=== PATIENT | male | born 1950 | race Two or more races ===

== ENCOUNTER 2017-11-17 14:13 | Outpatient (CLI) | payer OTHER | END 2017-11-17 14:21 | disposition home or self-care (01) | LOC: MRI 14:13 | DX: R41.3 Other amnesia (principal) | CPT/HCPCS: 70551 ==

== ENCOUNTER 2017-12-15 09:41 | Outpatient (CLI) | payer OTHER | END 2017-12-15 14:21 | disposition home or self-care (01) | LOC: MRI 09:41 | DX: M25.512 Pain in left shoulder (principal); M25.511 Pain in right shoulder | CPT/HCPCS: 73221 ==

== ENCOUNTER 2017-12-15 12:23 | Outpatient (CLI) | payer OTHER | END 2017-12-15 14:22 | disposition home or self-care (01) | LOC: RAD 12:23 | DX: M25.511 Pain in right shoulder (principal); M25.512 Pain in left shoulder; M19.012 Primary osteoarthritis, left shoulder ==

== ENCOUNTER 2018-04-25 10:09 | Outpatient (CLI) | payer OTHER | END 2018-04-25 17:00 | disposition home or self-care (01) | LOC: RAD 10:09 | DX: M54.6 Pain in thoracic spine (principal); M54.5 Low back pain ==

== ENCOUNTER 2018-05-13 13:24 | Outpatient (CLI) | payer OTHER | END 2018-05-13 17:00 | disposition home or self-care (01) | LOC: MRI 13:24 | DX: M54.17 Radiculopathy, lumbosacral region (principal) | CPT/HCPCS: 72158; A9579; 72149 ==

== ENCOUNTER → 2018-05-13 13:25 | Outpatient (CLI) | payer OTHER | END | disposition home or self-care (01) | LOC: LAB 13:25 | DX: M54.17 Radiculopathy, lumbosacral region (principal) ==

== ENCOUNTER 2018-07-05 11:49 | Outpatient (CLI) | payer OTHER | END 2018-07-05 11:53 | disposition home or self-care (01) | LOC: RAD 11:49 | DX: M47.817 Spondylosis without myelopathy or radiculopathy, lumbosacral region (principal); S32.010D Wedge compression fracture of first lumbar vertebra, subsequent encounter for fracture with routine healing ==

== ENCOUNTER 2018-07-14 09:08 | Emergency (ER) | payer OTHER ==
[~2018-07-14] VITALS: Ht 182.9 cm; Wt 95.3 kg
[2018-07-14] MEDS ORDERED: RANEXA1000 MG PO (09:21)
[2018-07-14] MEDS ORDERED: LIPITOR20 MG PO (09:22)
[2018-07-14] MEDS ORDERED: PLAVIX75 MG PO (09:22)
[2018-07-14] MEDS ORDERED: TOPROL XL25 M1 PO (09:22)
== END 2018-07-14 16:59 | disposition home or self-care (01) ==
LOC: ER 09:08
DX: N23 Unspecified renal colic (principal); R10.32 Left lower quadrant pain

== ENCOUNTER 2019-08-29 14:41 | Outpatient (CLI) | payer OTHER ==
[~2019-08-29 14:41] MED LIST: LIPITOR20 MG PO; PLAVIX75 MG PO; RANEXA1000 MG PO; TOPROL XL25 M1 PO
== END 2019-08-29 14:43 | disposition home or self-care (01) ==
LOC: RAD 14:41
DX: Z96.651 Presence of right artificial knee joint (principal)

== ENCOUNTER → 2019-10-26 12:59 | Outpatient (CLI) | payer OTHER | END | disposition home or self-care (01) | LOC: LAB 12:59 | DX: R10.31 Right lower quadrant pain (principal) ==

== ENCOUNTER 2019-10-27 09:11 | Outpatient (CLI) | payer OTHER | END 2019-10-27 09:29 | disposition home or self-care (01) | LOC: TOM 09:11 | DX: R10.31 Right lower quadrant pain (principal); R10.32 Left lower quadrant pain ==

== ENCOUNTER → 2020-09-02 17:17 | Outpatient (CLI) | payer OTHER | END | disposition home or self-care (01) | LOC: RAD 17:17 | DX: M25.542 Pain in joints of left hand (principal); M79.642 Pain in left hand; M79.641 Pain in right hand ==

== ENCOUNTER → 2021-05-27 14:14 | Outpatient (CLI) | payer OTHER | END | disposition home or self-care (01) | LOC: RAD 14:14 | DX: R53.83 Other fatigue (principal); J30.89 Other allergic rhinitis; K21.9 Gastro-esophageal reflux disease without esophagitis ==

== ENCOUNTER → 2021-11-04 08:00 | Outpatient (CLI) | payer OTHER | END | disposition home or self-care (01) | LOC: LAB 08:00 → CIR.AMB 11-11 09:44 → EDSTATUS 11-11 14:49 | PROVIDERS: ATTEND Surgery | DX: T83.410S Breakdown (mechanical) of implanted penile prosthesis, sequela (principal); Z20.818 Contact with and (suspected) exposure to other bacterial communicable diseases; Z11.52 Encounter for screening for COVID-19; Z01.810 Encounter for preprocedural cardiovascular examination ==

== ENCOUNTER → 2022-04-20 | Outpatient (CLI) | payer OTHER | END | disposition home or self-care (01) | LOC: SONOGRAMA 08:01 | PROVIDERS: ATTEND Orthopaedic Surgery Adult Reconstructive Orthopaedic Surgery | DX: M75.122 Complete rotator cuff tear or rupture of left shoulder, not specified as traumatic (principal); M75.52 Bursitis of left shoulder ==

== ENCOUNTER 2022-09-23 07:09 | Outpatient (CLI) | payer OTHER | END 2022-09-23 07:10 | disposition home or self-care (01) | LOC: NUCLEAR 07:09 | PROVIDERS: ATTEND Internal Medicine Gastroenterology | DX: K31.84 Gastroparesis (principal) | CPT/HCPCS: 78264; A9541 ==

== ENCOUNTER 2023-01-31 07:33 | Emergency (ER) | payer OTHER ==
[~2023-01-31] VITALS: Ht 182.9 cm; Wt 88.9 kg
[2023-01-31] MEDS ORDERED: CRESTOR20 MG (07:53)
[2023-01-31] MEDS ORDERED: TOPROL XL50 M1 (07:53)
== END 2023-01-31 10:51 | disposition home or self-care (01) ==
LOC: ER 07:33
DX: J03.90 Acute tonsillitis, unspecified (principal); Z20.822 Contact with and (suspected) exposure to COVID-19

== ENCOUNTER → 2023-02-25 | Outpatient (CLI) | payer OTHER ==
[~2023-02-25] MED LIST changes: +CRESTOR20 MG; +TOPROL XL50 M1
== END | disposition home or self-care (01) ==
LOC: RAD 16:38
DX: R05.3 Chronic cough (principal)

== ENCOUNTER → 2023-02-26 | Outpatient (CLI) | payer OTHER | END | disposition home or self-care (01) | LOC: TOM 09:11 | PROVIDERS: ATTEND Radiology Diagnostic Radiology | DX: R05.3 Chronic cough (principal) ==

== ENCOUNTER → 2023-06-28 | Outpatient (CLI) | payer OTHER | END | disposition home or self-care (01) | LOC: TOM 09:05 | PROVIDERS: ATTEND Internal Medicine Gastroenterology | DX: R10.9 Unspecified abdominal pain (principal); K57.32 Diverticulitis of large intestine without perforation or abscess without bleeding | CPT/HCPCS: 74177; Q9965 ==

== ENCOUNTER 2023-09-17 10:40 | Outpatient (CLI) | payer OTHER ==
[2023-09-17 11:39] LABS: CREATININE SERUM 1.07 mg/dL (0.70-1.30)
== END 2023-09-17 10:46 | disposition home or self-care (01) ==
LOC: LAB 10:40
DX: R10.2 Pelvic and perineal pain (principal); K80.20 Calculus of gallbladder without cholecystitis without obstruction

== ENCOUNTER 2023-09-27 06:31 | Outpatient (CLI) | payer OTHER | END 2023-09-27 15:19 | disposition home or self-care (01) | LOC: MRI 06:31 | PROVIDERS: ATTEND Internal Medicine Gastroenterology | DX: R10.9 Unspecified abdominal pain (principal) | CPT/HCPCS: 72196; 74182; Q9965; 72197; 74183 ==

== ENCOUNTER 2024-05-16 07:03 | Outpatient (CLI) | payer OTHER ==
[2024-05-17 09:08] LABS: HOMOCYSTEINE 8.6 umol/L (0.0-19.2)
[2024-05-17 15:11] LABS: ANTI CARDIO IGA < 9 APL U/mL (0-11); ANTI CARDIO IGG < 9 GPL U/mL (0-14); ANTI CARDIO IGM < 9 MPL U/mL (0-12)
[2024-05-19 07:06] LABS: beta 2 gly iga < 9 (0-25); beta 2 gly igg < 9 (0-20); beta 2 gly igm < 9 (0-32)
== END 2024-05-16 07:04 | disposition home or self-care (01) ==
LOC: LAB 07:03
PROVIDERS: ATTEND Internal Medicine Hematology & Oncology
DX: I25.119 Atherosclerotic heart disease of native coronary artery with unspecified angina pectoris (principal); G47.33 Obstructive sleep apnea (adult) (pediatric); K29.70 Gastritis, unspecified, without bleeding; E72.12 Methylenetetrahydrofolate reductase deficiency; D68.61 Antiphospholipid syndrome

== ENCOUNTER → 2024-07-14 08:39 | Outpatient (CLI) | payer OTHER ==
[2024-07-14 09:55] LABS: HEMATOCRIT 39.2 % (39.0-48.0); MEAN CELL VOLUME 90.2 fL (80.0-100.00); MEAN CORPUSCULAR HEMOGLOBIN 29.9 pg (27.00-32.0); MEAN CORPUSCULAR HGB CONC 33.2 g/dl (32.0-36.0); PLATELET COUNT 223 K/uL (150-450); RED BLOOD COUNT 4.35 M/uL (4.00-6.00); RED CELL DISTRIBUTION WIDTH 13.7 % (11.5-14.5)
[2024-07-14 11:11] LABS: % SATURACION 35.9 % (20-50); ALBUMIN 3.8 gm/dL (3.4-5.0); BILIRUBIN TOTAL 0.66 mg/dL (0.3-1.2); CALCIUM 9.2 mg/dL (8.5-10.1); CREATININE SERUM 1.08 mg/dL (0.70-1.30); GFR 66.84; GLOBULINA 3.4 G/DL (2.4-3.5); POTASSIUM 4.28 mEq/L (3.5-5.1); T4 FREE 0.87 NG/ML (0.76-1.46); TOTAL PROTEIN 7.2 gm/dL (6.4-8.2); TSH 1.7 uIU/mL (0.358-3.74)
[2024-07-14 12:37] LABS: FOLIC ACID 12.91 ng/ml (4.78-20)
[2024-07-17 09:48] LABS: MANUAL PLATELET COUNT 310
[2024-07-17 09:53] LABS: PLATELET ESTIMATE NORMAL (NORMAL)
== END | disposition home or self-care (01) ==
LOC: LAB 08:39
PROVIDERS: ATTEND Internal Medicine Hematology & Oncology
DX: I25.119 Atherosclerotic heart disease of native coronary artery with unspecified angina pectoris (principal); G47.33 Obstructive sleep apnea (adult) (pediatric); K29.70 Gastritis, unspecified, without bleeding; E72.12 Methylenetetrahydrofolate reductase deficiency; I20.0 Unstable angina; D50.8 Other iron deficiency anemias; R79.9 Abnormal finding of blood chemistry, unspecified; I10 Essential (primary) hypertension; R74.02 Elevation of levels of lactic acid dehydrogenase [LDH]; K76.89 Other specified diseases of liver; D51.1 Vitamin B12 deficiency anemia due to selective vitamin B12 malabsorption with proteinuria; D63.1 Anemia in chronic kidney disease; E03.8 Other specified hypothyroidism

== ENCOUNTER 2024-07-17 08:56 | Outpatient (CLI) | payer OTHER ==
[2024-07-19 15:08] LABS: ANTI-THROMBIN III 96 % (75-135); PROTEIN C ACTIVITY 133 % (73-180); PROTEIN S ACTIVITY 100 % (63-140); Protein s 88 % (60-150); Protein s free 105 % (61-136); dRVVT 34.1 sec (0.0-47.0); interp Comment: (.); ptt-la 35.1 sec (0.0-43.5)
== END 2024-07-17 09:04 | disposition home or self-care (01) ==
LOC: LAB 08:56
PROVIDERS: ATTEND Internal Medicine Hematology & Oncology
DX: I25.119 Atherosclerotic heart disease of native coronary artery with unspecified angina pectoris (principal); G47.33 Obstructive sleep apnea (adult) (pediatric); K29.70 Gastritis, unspecified, without bleeding; E72.12 Methylenetetrahydrofolate reductase deficiency; D68.59 Other primary thrombophilia; D68.61 Antiphospholipid syndrome; D68.51 Activated protein C resistance; D68.312 Antiphospholipid antibody with hemorrhagic disorder

== ENCOUNTER 2025-05-15 10:34 | Outpatient (CLI) | payer OTHER | END 2025-05-15 10:38 | disposition home or self-care (01) | LOC: RAD 10:34 | PROVIDERS: ATTEND Physical Medicine & Rehabilitation Pain Medicine | DX: M54.2 Cervicalgia (principal) ==

== ENCOUNTER → 2025-07-09 | Outpatient (CLI) | payer OTHER | END | disposition home or self-care (01) | LOC: MRI 08:12 | PROVIDERS: ATTEND Physical Medicine & Rehabilitation Pain Medicine | DX: M54.2 Cervicalgia (principal) | CPT/HCPCS: 72141 ==

== ENCOUNTER → 2025-07-16 | Outpatient (CLI) | payer OTHER | END | disposition home or self-care (01) | LOC: RAD 14:26 | PROVIDERS: ATTEND Specialist | DX: E78.5 Hyperlipidemia, unspecified (principal); I10 Essential (primary) hypertension ==

== ENCOUNTER 2025-10-24 11:34 | Emergency (ER) | payer OTHER ==
[~2025-10-24] VITALS: Ht 182.9 cm; Wt 90.7 kg
[2025-10-24] MEDS ORDERED: ISOSORBIDE MONO30 MG (12:43)
[2025-10-24] MEDS ORDERED: ZETIA10 MG (12:43)
[2025-10-24] MEDS ORDERED: LIPITOR20 MG (12:43)
[2025-10-24] MEDS ORDERED: [UNRECOGNIZED DRUG - OTHER] (12:45)
[2025-10-24] MEDS ORDERED: GUAIFENESIN 200 MG/10 ML BLIST.PACK PO ONE ×2 (14:15→14:38)
[2025-10-24] MEDS ORDERED: CEFTRIAXONE SODIUM 1,000 MG VIAL IV ONE (14:15)
[2025-10-24] MEDS ORDERED: AZITHROMYCIN 500 MG VIAL IV ONE ×2 (14:15→14:38)
[2025-10-24] MEDS ORDERED: CEFTRIAXONE SODIUM 1,000 MG VIAL ONE (14:38)
[2025-10-24 15:08] LABS: BASO % 0.2 % (0.1-1.2); EOS # 0.06 (0.04-0.54); EOS % 0.9 % (0.7-7.0); LYMPH # 1.15 (1.18-3.74); LYMPH % 17.9 % (19.3-53.1); MEAN PLATELET VOLUME 9.20 fl (9.4-12.4); MONO # 0.37 (0.24-0.82); MONO % 5.8 % (4.7-12.5); NEUT # 4.82 (1.56-6.13); NEUT % 74.9 % (34.0-71.1); RED CELL DISTRIBUTION WIDTH 13.4 % (11.6-14.4)
[2025-10-24 15:12] LABS: ERYTHROCYTE SEDIMENTATION RATE 31 mm/hr (0-20)
[2025-10-24 15:37] LABS: ALT/SGPT 32 U/L (12-78); AST/SGOT 21 U/L (15-37); BILIRUBIN TOTAL 0.65 mg/dL (0.3-1.2); BUN CREA RATIO 24 (7.0-25.0); CREATININE SERUM 1.07 mg/dL (0.70-1.30); GFR 67.37; GLOBULINA 3.9 G/DL (2.4-3.5); GLUCOSE FASTING 135 mg/dL (65-100); OSMOLALITY SERUM 282 MOSM/KG (275-295)
[2025-10-24 17:43] LABS: COVID-19 AG NEGATIVE (NEGATIVE)
== END 2025-10-24 18:12 | disposition home or self-care (01) ==
LOC: ER 11:34
PROVIDERS: Student in an Organized Health Care Education/Training Program
DX: J20.9 Acute bronchitis, unspecified (principal); J06.9 Acute upper respiratory infection, unspecified; J00 Acute nasopharyngitis [common cold]; R05.8 Other specified cough; R50.9 Fever, unspecified; Z20.822 Contact with and (suspected) exposure to COVID-19
CPT/HCPCS: 36415; 71045; 96365; 99283; J0456; J0696